=== PATIENT | female | born 1940 | race Caucasian/White ===

== ENCOUNTER 2021-11-17 09:20 | Emergency (ER) | payer MEDICARE, OTHER ==
[2021-11-17 09:51] LABS: Bilirubin Negative (Negative); Blood, Urine Negative (Negative); Glucose, Urine (Dipstick) Negative (Negative); Ketone, Urine Negative (Negative); Leukocyte Small (Negative); Nitrite Positive (Negative); Protein, Urine (Dipstick) Negative (Neg-Trace); Urobilinogen 0.2 mg/dL (Less than 2)
[2021-11-17 09:52] LABS: Clarity Hazy (Clear)
[2021-11-17 09:55] LABS: Bacteria/HPF 1+ HPF (None Seen); RBC/HPF 0-3 HPF (0-3); WBC/HPF 21-50 HPF (0-3); Yeast-Budding Rare HPF (None Seen)
== END 2021-11-17 10:05 | disposition home or self-care (01) ==
LOC: MADERS 09:20
DX: N39.0 Urinary tract infection, site not specified (principal); I10 Essential (primary) hypertension; Z79.899 Other long term (current) drug therapy
CPT/HCPCS: 81003; 81015; 87077; 87086; 87186; 99283

== ENCOUNTER 2022-04-29 10:33 | Emergency (ER) | payer MEDICARE, OTHER ==
[~2022-04-29 10:33] MED LIST: Sodium Chloride 0.9% 1,000 ML BAG ONE
[2022-04-29 10:53] LABS: #Basophils 0.1 thou/uL (0.0-0.2); #Eosinphils 0.1 thou/uL (0.0-0.7); #Lymphocytes 2.1 thou/uL (1.20-3.40); #Monocytes 0.6 thou/uL (0.11-0.59); #Neutrophils 4.4 thou/uL (1.40-6.50); %Basophils 1.5 % (0.0-1.0); %Eosinophils 1.6 % (0.0-10.0); %Lymphocytes 28.4 % (21.0-51.0); %Monocytes 8.1 % (0.0-10.0); %Neutrophils 60.5 % (42.0-75.0); Hemoglobin 11.9 g/dL (12.0-16.0); Mean Corpuscular HGB CONC 33.9 g/dL (32.0-36.0); Mean Corpuscular Volume 88.6 fl (78.0-98.0); Mean Platelet Volume 7.1 fL (7.4-10.4); Platelet Count 250 10x3/uL (130-400); RBC Distribution Width 12.4 % (11.5-14.5); Red Blood Cell (RBC) Count 3.96 mill/uL (4.20-5.40); White Blood Cell (WBC) Count 7.3 10x3/uL (4.8-10.8)
[2022-04-29] MEDS ORDERED: Calcium Chloride 1 GM/10 ML Abboject SYRINGE ONE (10:58)
[2022-04-29] MEDS ORDERED: Calcium Gluc 4.6 MEQ/10 ML (100 MG/ML) ONE (10:59)
[2022-04-29 11:04] LABS: INR-International Normal Ratio 1.1; Prothrombin Time 14.1 sec (12.0-14.7)
[2022-04-29 11:05] LABS: PTT 34.3 sec (22.9-36.1)
[2022-04-29 11:12] LABS: ALT (SGPT) 15 U/L (8-55); AST (SGOT) 18 U/L (5-34); Albumin 3.8 g/dL (3.4-4.8); Alkaline Phosphatase 57 U/L (40-110); Anion Gap 14 mmol/L (10-20); BUN (Urea Nitrogen) 24 mg/dL (9.8-20.1); Bilirubin, Total 0.5 mg/dL (0.2-1.2); Calc. Creatinine Clearance 0 mL/min (70-130); Carbon Dioxide 18 mmol/L (23-31); Chloride 109 mmol/L (98-107); Estimated GFR 39; Globulin 2.5 g/dL (2.4-3.5); Glucose 107 mg/dL (83-110); Magnesium 1.9 mg/dL (1.6-2.6); Protein, Total 6.3 g/dL (5.8-8.1); Sodium 135 mmol/L (136-145)
[2022-04-29 11:35] LABS: Potassium 6.1 mmol/L (3.5-5.1)
[2022-04-29] MEDS ORDERED: Dextrose 50% Abboject 50 ML SYRINGE ONE (11:51)
[2022-04-29] MEDS ORDERED: Sodium Bicarb 50 MEQ/50 ML Abboject 8.4% SYRINGE ONE (11:51)
[2022-04-29] MEDS ORDERED: Atropine Sulfate 1 mg/10 ml Syringe ONE (11:51)
[2022-04-29] MEDS ORDERED: Insulin Regular 300 UNITS/3 ML VIAL ONE (11:51)
[2022-04-29] MEDS ORDERED: Sodium Chloride 0.9% 2,000 ML ONE (11:51)
[2022-04-29] MEDS ORDERED: Aspirin 325 MG TAB ONE (11:51)
[2022-04-29] MEDS ORDERED: Albuterol 2.5 MG/0.5 ML NEB ONE (11:51)
== END 2022-04-29 13:46 | disposition short-term general hospital (02) ==
LOC: MADERS 10:33
DX: R00.1 Bradycardia, unspecified (principal); N17.9 Acute kidney failure, unspecified; R07.89 Other chest pain; E87.5 Hyperkalemia; H53.8 Other visual disturbances; I10 Essential (primary) hypertension; Z79.899 Other long term (current) drug therapy
CPT/HCPCS: 70450; 71045; 83735; 84484; 85610; 85730; 93005; 94760; J0610; 80053; 84443; 85025; 96365; 96375; J0461; J1815; J7050; J7611; J7999

== ENCOUNTER 2022-06-25 12:36 | Inpatient (IN) | payer MEDICARE, OTHER ==
[2022-06-25] MEDS ORDERED: traMADol HCl 50 MG TAB PO PRN ×2 (20:40→20:57)
[2022-06-25] MEDS ORDERED: Non-Formulary Item 1 EACH (Acetaminophen/Diphenhydramine [Tylenol Pm Exstr 500-25mg Cplt] PO SCH (21:00)
[2022-06-25] MEDS ORDERED: Carvedilol 6.25 MG TAB PO SCH (21:45)
[2022-06-25] MEDS ORDERED: Acetaminophen 325 MG TAB PO PRN (21:48)
[2022-06-25 21:54] VITALS: BMI 27.4
[2022-06-26] MEDS ORDERED: Acetaminophen 325 MG TAB PO PRN (04:50)
[2022-06-26] MEDS ORDERED: ESTROGENS CONJUGATED 0.625 MG PO SCH (09:00)
[2022-06-26] MEDS ORDERED: Non-Formulary Item 1 EACH (Losartan/Hydrochlorothiazide [Losartan-Hctz 100-25 Mg Tab] 1 E PO SCH (09:00)
[2022-06-26] MEDS ORDERED: Non-Formulary Item 1 EACH (Amlodipine Besylate [Norvasc] 2.5 MG Tablet) PO SCH (09:00)
[2022-06-26] MEDS ORDERED: Furosemide 40 MG TAB PO SCH (09:00)
[2022-06-26] MEDS ORDERED: Aspirin Chewable 81 MG TAB PO SCH (09:00)
[2022-06-26] MEDS: Nystatin Cream 15 GM TUBE TOP SCH ×2 (09:08→21:13)
[2022-06-26] MEDS: Carvedilol 6.25 MG TAB PO SCH ×2 (09:08→21:11)
[2022-06-26] MEDS: Aspirin 81 mg Enteric Coated Tablet PO SCH (09:08)
[2022-06-26] MEDS: Atorvastatin Calcium 40 MG TAB PO SCH (09:08)
[2022-06-26] MEDS: Polyethylene Glycol 3350 17 GM Packet PO SCH (09:09)
[2022-06-26] MEDS: Furosemide 40 MG TAB PO SCH (09:33)
[2022-06-26] MEDS: traMADol HCl 50 MG TAB PO PRN ×2 (13:09→21:09)
[2022-06-26] MEDS ORDERED: Atorvastatin Calcium 40 MG TAB PO SCH (21:00)
[2022-06-26] MEDS ORDERED: Gabapentin 300 MG CAP PO SCH (21:00)
[2022-06-26] MEDS: Gabapentin 300 MG CAP PO SCH (21:11)
[2022-06-27] MEDS: Atorvastatin Calcium 40 MG TAB PO SCH (08:23)
[2022-06-27] MEDS: Carvedilol 6.25 MG TAB PO SCH ×2 (08:24→21:33)
[2022-06-27] MEDS: Nystatin Cream 15 GM TUBE TOP SCH ×2 (08:24→21:38)
[2022-06-27] MEDS: Aspirin 81 mg Enteric Coated Tablet PO SCH (08:24)
[2022-06-27] MEDS: Polyethylene Glycol 3350 17 GM Packet PO SCH (08:24)
[2022-06-27] MEDS: Ferrous Sulfate 325 MG TAB PO SCH (08:24)
[2022-06-27] MEDS: Furosemide 40 MG TAB PO SCH (08:24)
[2022-06-27] MEDS: ESTROGEN PO SCH (17:14)
[2022-06-27] MEDS: Gabapentin 300 MG CAP PO SCH (21:35)
[2022-06-27] MEDS: traMADol HCl 50 MG TAB PO PRN (21:36)
[2022-06-28] MEDS: Ferrous Sulfate 325 MG TAB PO SCH (08:40)
[2022-06-28] MEDS: Carvedilol 6.25 MG TAB PO SCH ×2 (08:40→21:37)
[2022-06-28] MEDS: Aspirin 81 mg Enteric Coated Tablet PO SCH (08:40)
[2022-06-28] MEDS: Furosemide 40 MG TAB PO SCH (08:40)
[2022-06-28] MEDS: Atorvastatin Calcium 40 MG TAB PO SCH (08:44)
[2022-06-28] MEDS: ESTROGEN PO SCH (08:44)
[2022-06-28] MEDS: Nystatin Cream 15 GM TUBE TOP SCH ×2 (08:44→21:40)
[2022-06-28] MEDS: Polyethylene Glycol 3350 17 GM Packet PO SCH (08:47)
[2022-06-28] MEDS: traMADol HCl 50 MG TAB PO PRN ×2 (14:37→21:38)
[2022-06-28] MEDS: Gabapentin 300 MG CAP PO SCH (21:39)
[2022-06-29] MEDS: Aspirin 81 mg Enteric Coated Tablet PO SCH (08:18)
[2022-06-29] MEDS: Atorvastatin Calcium 40 MG TAB PO SCH (08:18)
[2022-06-29] MEDS: Carvedilol 6.25 MG TAB PO SCH ×2 (08:18→20:16)
[2022-06-29] MEDS: Ferrous Sulfate 325 MG TAB PO SCH (08:18)
[2022-06-29] MEDS: Furosemide 40 MG TAB PO SCH (08:18)
[2022-06-29] MEDS: Nystatin Cream 15 GM TUBE TOP SCH ×2 (08:19→20:15)
[2022-06-29] MEDS: ESTROGEN PO SCH (08:19)
[2022-06-29] MEDS: Polyethylene Glycol 3350 17 GM Packet PO SCH (08:19)
[2022-06-29] MEDS: traMADol HCl 50 MG TAB PO PRN ×2 (08:52→21:52)
[2022-06-29] MEDS: Gabapentin 300 MG CAP PO SCH (20:10)
[2022-06-30] MEDS: ESTROGEN PO SCH (09:22)
[2022-06-30] MEDS: Ferrous Sulfate 325 MG TAB PO SCH (09:22)
[2022-06-30] MEDS: Carvedilol 6.25 MG TAB PO SCH ×2 (09:22→20:36)
[2022-06-30] MEDS: Furosemide 40 MG TAB PO SCH (09:22)
[2022-06-30] MEDS: Atorvastatin Calcium 40 MG TAB PO SCH (09:22)
[2022-06-30] MEDS: Aspirin 81 mg Enteric Coated Tablet PO SCH (09:22)
[2022-06-30] MEDS: Polyethylene Glycol 3350 17 GM Packet PO SCH (09:22)
[2022-06-30] MEDS: Nystatin Cream 15 GM TUBE TOP SCH ×2 (09:25→20:39)
[2022-06-30] MEDS: traMADol HCl 50 MG TAB PO PRN ×2 (14:09→21:25)
[2022-06-30] MEDS ORDERED: Sulfameth/Trimethoprim DS 800-160mg TAB PO SCH (16:15)
[2022-06-30] MEDS: Gabapentin 300 MG CAP PO SCH (20:36)
[2022-07-01 05:05] LABS: #Basophils 0.1 thou/uL (0.0-0.2); #Eosinphils 0.5 thou/uL (0.0-0.7); #Lymphocytes 1.2 thou/uL (1.20-3.40); #Monocytes 0.8 thou/uL (0.11-0.59); #Neutrophils 5.4 thou/uL (1.40-6.50); %Basophils 1.2 % (0.0-1.0); %Eosinophils 6.5 % (0.0-10.0); %Lymphocytes 14.5 % (21.0-51.0); %Monocytes 9.9 % (0.0-10.0); %Neutrophils 67.9 % (42.0-75.0); Mean Corpuscular HGB CONC 33.2 g/dL (32.0-36.0); Mean Corpuscular Hemoglobin 30.1 pg (27.0-31.0); Mean Corpuscular Volume 90.7 fl (78.0-98.0); Mean Platelet Volume 7.6 fL (7.4-10.4); Platelet Count 296 10x3/uL (130-400); RBC Distribution Width 12.2 % (11.5-14.5); Red Blood Cell (RBC) Count 3.31 mill/uL (4.20-5.40)
[2022-07-01] MEDS: Furosemide 40 MG TAB PO SCH (08:53)
[2022-07-01] MEDS: Ferrous Sulfate 325 MG TAB PO SCH (08:54)
[2022-07-01] MEDS: Carvedilol 6.25 MG TAB PO SCH ×2 (08:55→22:08)
[2022-07-01] MEDS: Atorvastatin Calcium 40 MG TAB PO SCH (08:56)
[2022-07-01] MEDS: Aspirin 81 mg Enteric Coated Tablet PO SCH (08:57)
[2022-07-01] MEDS: Sulfameth/Trimethoprim DS 800-160mg TAB PO SCH (08:58)
[2022-07-01] MEDS: Polyethylene Glycol 3350 17 GM Packet PO SCH (08:58)
[2022-07-01] MEDS: ESTROGEN PO SCH (09:01)
[2022-07-01] MEDS: Nystatin Cream 15 GM TUBE TOP SCH ×2 (09:05→22:09)
[2022-07-01] MEDS: Ondansetron ODT 4 MG TAB PO PRN (09:45)
[2022-07-01] MEDS: traMADol HCl 50 MG TAB PO PRN (21:44)
[2022-07-01] MEDS: Gabapentin 300 MG CAP PO SCH (22:08)
[2022-07-02] MEDS: Furosemide 40 MG TAB PO SCH (09:30)
[2022-07-02] MEDS: Atorvastatin Calcium 40 MG TAB PO SCH (09:30)
[2022-07-02] MEDS: Polyethylene Glycol 3350 17 GM Packet PO SCH (09:30)
[2022-07-02] MEDS: Sulfameth/Trimethoprim DS 800-160mg TAB PO SCH (09:30)
[2022-07-02] MEDS: Ferrous Sulfate 325 MG TAB PO SCH (09:30)
[2022-07-02] MEDS: Carvedilol 6.25 MG TAB PO SCH ×2 (09:30→21:32)
[2022-07-02] MEDS: ESTROGEN PO SCH (09:31)
[2022-07-02] MEDS: Aspirin 81 mg Enteric Coated Tablet PO SCH (09:31)
[2022-07-02] MEDS: Nystatin Cream 15 GM TUBE TOP SCH ×2 (09:32→21:31)
[2022-07-02] MEDS: traMADol HCl 50 MG TAB PO PRN ×2 (09:41→21:32)
[2022-07-02] MEDS: Gabapentin 300 MG CAP PO SCH (21:31)
[2022-07-02] MEDS: Ondansetron ODT 4 MG TAB PO PRN (21:35)
[2022-07-03] MEDS: Ferrous Sulfate 325 MG TAB PO SCH (08:41)
[2022-07-03] MEDS: Carvedilol 6.25 MG TAB PO SCH ×2 (08:41→21:06)
[2022-07-03] MEDS: Polyethylene Glycol 3350 17 GM Packet PO SCH (08:41)
[2022-07-03] MEDS: Aspirin 81 mg Enteric Coated Tablet PO SCH (08:41)
[2022-07-03] MEDS: Furosemide 40 MG TAB PO SCH (08:41)
[2022-07-03] MEDS: Atorvastatin Calcium 40 MG TAB PO SCH (08:41)
[2022-07-03] MEDS: Sulfameth/Trimethoprim DS 800-160mg TAB PO SCH (08:41)
[2022-07-03] MEDS: Nystatin Cream 15 GM TUBE TOP SCH ×2 (08:47→21:08)
[2022-07-03] MEDS: traMADol HCl 50 MG TAB PO PRN (21:03)
[2022-07-03] MEDS: Gabapentin 300 MG CAP PO SCH (21:06)
[2022-07-04] MEDS: Furosemide 40 MG TAB PO SCH (08:53)
[2022-07-04] MEDS: Ferrous Sulfate 325 MG TAB PO SCH (08:53)
[2022-07-04] MEDS: Aspirin 81 mg Enteric Coated Tablet PO SCH (08:53)
[2022-07-04] MEDS: Atorvastatin Calcium 40 MG TAB PO SCH (08:53)
[2022-07-04] MEDS: Sulfameth/Trimethoprim DS 800-160mg TAB PO SCH (08:53)
[2022-07-04] MEDS: Carvedilol 6.25 MG TAB PO SCH ×2 (08:54→20:45)
[2022-07-04] MEDS: Polyethylene Glycol 3350 17 GM Packet PO SCH (08:54)
[2022-07-04] MEDS: Nystatin Cream 15 GM TUBE TOP SCH ×2 (08:56→22:11)
[2022-07-04] MEDS: Ondansetron ODT 4 MG TAB PO PRN (20:44)
[2022-07-04] MEDS: Gabapentin 300 MG CAP PO SCH (20:45)
[2022-07-04] MEDS: traMADol HCl 50 MG TAB PO PRN (20:48)
[2022-07-05] MEDS: Atorvastatin Calcium 40 MG TAB PO SCH (08:13)
[2022-07-05] MEDS: Aspirin 81 mg Enteric Coated Tablet PO SCH (08:14)
[2022-07-05] MEDS: Carvedilol 6.25 MG TAB PO SCH (08:14)
[2022-07-05] MEDS: Ferrous Sulfate 325 MG TAB PO SCH (08:14)
[2022-07-05] MEDS: Nystatin Cream 15 GM TUBE TOP SCH (08:14)
[2022-07-05] MEDS: Sulfameth/Trimethoprim DS 800-160mg TAB PO SCH (08:14)
[2022-07-05] MEDS: Polyethylene Glycol 3350 17 GM Packet PO SCH (08:14)
[2022-07-05] MEDS: Furosemide 40 MG TAB PO SCH (08:15)
[2022-07-05 10:44] VITALS: BP 138/73; TEMP 97.7
== END 2022-07-05 11:40 | disposition home or self-care (01) | DRG 948 ==
LOC: MADMS 21:29
PROVIDERS: ADMIT Family Medicine; ATTEND Family Medicine
DX: R53.81 Other malaise (principal); R53.1 Weakness; E78.5 Hyperlipidemia, unspecified; G89.29 Other chronic pain; M54.9 Dorsalgia, unspecified; I25.10 Atherosclerotic heart disease of native coronary artery without angina pectoris; K21.9 Gastro-esophageal reflux disease without esophagitis; I11.9 Hypertensive heart disease without heart failure; Z66 Do not resuscitate; Z60.2 Problems related to living alone; D64.9 Anemia, unspecified; Z95.1 Presence of aortocoronary bypass graft; Z79.899 Other long term (current) drug therapy; Z79.82 Long term (current) use of aspirin; Z98.1 Arthrodesis status
CPT/HCPCS: 36415; 82565; 85025; Q0162

== ENCOUNTER 2024-03-12 08:44 | Emergency (ER) | payer MEDICARE, OTHER | END 2024-03-12 09:17 | disposition home or self-care (01) | LOC: MADERS 08:44 | DX: R05.9 Cough, unspecified (principal); I10 Essential (primary) hypertension; I25.10 Atherosclerotic heart disease of native coronary artery without angina pectoris; E78.00 Pure hypercholesterolemia, unspecified; Z79.82 Long term (current) use of aspirin; Z79.899 Other long term (current) drug therapy | CPT/HCPCS: 99283 ==